=== PATIENT | female | born 1960 | race Caucasian/White ===

== ENCOUNTER 2023-04-09 12:33 | Outpatient (CLI) | payer OTHER, SELFPAY ==
--- NOTE | ~2023-04-09 | CT_ITS ---
EXAMINATION: CT abdomen pelvis wo con DATE: 04/09/2023 12:52 INDICATION: Urinary tract infection TECHNIQUE: Computed tomography (CT) of the abdomen and pelvis was performed without intravenous contr ast. The dose-length product (DLP) was 470.72 mGy-cm. Automated exposure control and iterative recons truction technique were employed. COMPARISON: None FINDINGS: Minimal dependent atelectasis is present in the lung bases. The heart size is normal. The l iver, spleen, pancreas, gallbladder, and adrenal glands are normal. The kidneys are unremarkable. No pathologically enlarged abdominal or pelvic lymph nodes are identified. No free intraperitoneal gas o r evidence of bowel obstruction. There is infiltration of the small bowel mesentery with mildly promi nent, but nonenlarged, mesenteric lymph nodes. Segmentation anomalies are noted in the lumbar spine. There are bilateral L5 pars defects. IMPRESSION: 1. No CT correlate for the patient's symptoms. 2. CT findings consistent with sclerosing mesenteritis. Reviewed, dictated and finalized at location F.
== END 2023-04-09 12:34 | disposition home or self-care (01) ==
PROVIDERS: PCP Internal Medicine; Visit Provider Internal Medicine
DX: N39.0 Urinary tract infection, site not specified (principal)
CPT/HCPCS: 74176

== ENCOUNTER 2023-12-12 01:38 | Day surgery (SDC) | payer OTHER, SELFPAY ==
[2023-12-02 18:16] VITALS: BMI 25.5
--- NOTE | 2023-12-02 18:17 | PC.NURSE ---
Report to the Outpatient Waiting Room, entrance under the green pavilion located off [facility], at time __0615 on date ___[phone]____. Planned Procedure Time: _0815 . Time changes happen often and if your time is changed the preop area will call you the afternoon before. - You and your visitor will be asked to self-screen and do not enter if you have any COVID symptoms. - A mask is optional within the hospital at this time. Patients may have clear liquids (water, carbonated beverages, clear teas, apple juice) until 3 hours prior to surgery with a maximum of 20 ounces. stop at 0515. - No food from midnight until time of surgery - Take the following medications with a SIP of water the morning of surgery: ____none DO NOT STOP ANY OF YOUR OTHER PRESCRIPTION MEDICATIONS PRIOR TO SURGERY ?EXCEPT THE FOLLOWING Medications to discontinue per physician hold supplements x3 days (last dose on 12-08-2023) Please no make-up, nail czech, hairspray, perfume, deodorant, or body powder the day of surgery. No jewelry (including any body piercings) or valuables the day of surgery, leave them at home. Please take a shower or bath the night before, or the morning of, surgery with an antibacterial soap. Wear comfortable, loose fitting clothing. - Jewelry must be removed prior to entering the operating room. Rings and piercings that are not removed may be cut off. - The hospital will not accept responsibility for valuables. - Please leave all valuables, including medications, at home the day of surgery. If you are going home after surgery, a licensed driver's education instructor must drive you home. - NO public transportation without another adult if you receive anesthesia. - We recommend that an adult stay with you for 24 hours following discharge. - We also recommend that you do not drive, make important decision, drink alcoholic beverages, or take any drugs that were not prescribed by your health care provider for at least 24 hours after your discharge time. Follow any additional instructions given to you from your surgeon. If you or anyone in your household have experienced Covid symptoms in the past week, please notify your surgeon or the nurse liaison at the phone number below for possible testing. Telephone instructions given to ___patient/Kenjohny and asked if any additional questions and then verbalized understanding. Patient advised to call surgeon office or pre surgery nurse liaison [phone] if any additional questions.
--- NOTE | 2023-12-07 19:32 | PM.IMHP ---
H&P: HPI History of Present Illness Date/Time: 12/07/23 19:32 Chief Complaint: KRISTI Narrative: h/o KRISTI previous XRT Review of Systems Review of Systems: All systems reviewed & are unremarkable except as noted in HPI and below [facility] Past Medical History Medical History Acute sinusitis Asthma BMI 25.0-25.9,adult BMI 26.0-26.9,adult Encounter for preventive health examination Encounter for routine adult health examination without abnormal findings Encounter to establish care Frequent UTI Hearing loss History of endometrial cancer Hx of colonic polyps Hyperlipidemia 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 Peripheral neuropathy Post-menopausal Pre-diabetes Sleep disturbance SOB (shortness of breath) Vitamin D deficiency Family History Family History Father Family history of Alzheimer's disease, Onset Age: 92 ETOHism Mother Family history of Alzheimer's disease, Onset Age: 92 Social History Social History Smoking status: Never smoker Second hand tobacco smoke exposure: No Smoking end date: 07/14/83 Alcohol intake: current Drinks per week: 3 Alcohol use details: Social ETOH Substance use: never Substance use type: does not use Lack of Transportation: No Lack of Food: Never True Current Housing: I Have Housing Concerned About Future Housing: No Difficulty Paying Gas/Electric Bills: No Difficulty Paying for Meds: No Currently Unemployed: No Education: High School Diploma/GED Difficulty w/ Childcare or Family Care: No Living arrangements: with family Occupation/Education: occupation Gender identity (if verbalized by the patient): Female Meds Home Medications and Allergies Home Medications Medication Instructions Recorded Confirmed Type vitamin B complex 1 tablet PO DAILY 04/03/22 12/02/23 History rosuvastatin 10 mg tablet 10 mg PO DAILY #90 tabs 06/12/23 12/02/23 Rx cholecalciferol (vitamin D3) 100 1,000 unit PO DAILY 12/02/23 12/02/23 History mcg (4,000 unit) capsule fluticasone furoate 200 See Rx Instructions .Route .COMPLEX 12/02/23 12/02/23 History mcg-vilanterol 25 mcg/dose inhalation powder (Breo Ellipta) Allergies Allergy/AdvReac Type Severity Reaction Status Date / Time No Known Drug Allergies Allergy Unknown Unknown Verified 12/02/23 18:29 Exam Narrative: vaginal mucosa healthy urethral hypermobility Assessment and Plan Assessment and plan (1) KRISTI (stress urinary incontinence, female): Code(s): N39.3 - Stress incontinence (female) (male) Status: Acute Assessment and Plan: urethral sling
--- NOTE | 2023-12-11 12:03 | WPDANESEPPF ---
Anes - Initial Pre Proc Eval Procedure: Operation Date: 12/12/23 09:30 Proposed Procedures p Urethral Sling - Andrew Valentine MD Date/Time: 12/11/23 12:03 Surgeon: Andrew Valentine MD Pre Op Diagnosis: stress incontinence Patient Data Age: 62 Gender: F Height: 1.73 m Weight: 76.2 kg Allergies Allergy/AdvReac Type Severity Reaction Status Date / Time No Known Drug Allergies Allergy Unknown Unknown Verified 12/02/23 18:29 Home Medications Medication Instructions Recorded Confirmed Type vitamin B complex 1 tablet PO DAILY 04/03/22 12/02/23 History rosuvastatin 10 mg tablet 10 mg PO DAILY #90 tabs 06/12/23 12/02/23 Rx cholecalciferol (vitamin D3) 100 1,000 unit PO DAILY 12/02/23 12/02/23 History mcg (4,000 unit) capsule fluticasone furoate 200 See Rx Instructions .Route .COMPLEX 12/02/23 12/02/23 History mcg-vilanterol 25 mcg/dose inhalation powder (Breo Ellipta) Patient hx anesthesia problems: none Family hx anesthesia problems: none Results Review: All pre-operative results and documents have been reviewed as part of the pre-operative evaluation. [facility] Past Medical History Medical History (Updated 12/11/23 @ 12:03 by Javy Pope DO) Acute sinusitis Asthma BMI 25.0-25.9,adult BMI 26.0-26.9,adult Encounter for preventive health examination Encounter for routine adult health examination without abnormal findings Encounter to establish care Endometrial cancer Frequent UTI Hearing loss History of endometrial cancer Hx of colonic polyps Hyperlipidemia On correction drug therapy Peripheral neuropathy Post-menopausal Pre-diabetes Sleep disturbance SOB (shortness of breath) Vitamin D deficiency Surgical History Surgical History (Updated 12/11/23 @ 12:03 by Javy Pope DO) History of hysterectomy Family History Family History Father Family history of Alzheimer's disease, Onset Age: 92 ETOHism Mother Family history of Alzheimer's disease, Onset Age: 92 Social History Social History Smoking status: Never smoker Second hand tobacco smoke exposure: No Smoking end date: 07/14/83 Alcohol intake: current Drinks per week: 3 Alcohol use details: Social ETOH Substance use: never Substance use type: does not use Lack of Transportation: No Lack of Food: Never True Current Housing: I Have Housing Concerned About Future Housing: No Difficulty Paying Gas/Electric Bills: No Difficulty Paying for Meds: No Currently Unemployed: No Education: High School Diploma/GED Difficulty w/ Childcare or Family Care: No Living arrangements: with family Occupation/Education: occupation Gender identity (if verbalized by the patient): Female Anes - Eval Final PreProcedure Day of Procedure 12/11/23 12:03 Patient weight: overweight Heart: regular rate and rhythm Lungs: clear to auscultation Airway: Mallampati scale class II Neurological: alert and oriented Last oral intake: >/= 8 hours ASA classification: II Emergent: no Anesthetic plan: proceed Anesthesia type and monitoring: general GIVS and standard monitoring Results Review: All pre-operative results and documents have been reviewed as part of the pre-operative evaluation. Informed Consent: The patient's anesthetic plan and its attendant risks and benefits were discussed with the patient/family/POA. Questions were solicited and answers provided to the satisfaction of the patient/family/POA.
--- NOTE | 2023-12-12 04:34 | WPDHPUPDATE1 ---
History and Physical Update Update Date/Time: 12/12/23 04:34 History and Physical has been reviewed, including an updated exam of the patient. There are NO changes in the patient's condition. Risks, benefits, and alternatives have been discussed and questions answered. Patient agrees to proceed with procedure.
[2023-12-12 08:23] VITALS: BP 116/77; PULSE 84; TEMP 36.3; O2SAT 100
[2023-12-12] MEDS: LACTATED RINGERS 1,000 ML 30 ML IV CONT (08:45)
[2023-12-12] MEDS: ceFAZolin 2 GM/D5W 50 ML 2 GM/50 ML BAG IVPB (09:08)
[2023-12-12] MEDS: BUPIVACAINE/EPINEPHRINE 0.5% 10 ML VIAL INFILTRATE (09:18)
[2023-12-12 09:35] VITALS: BP 97/56; PULSE 76; RESP 12; O2SAT 100
--- NOTE | 2023-12-12 09:41 | W.PM.PROC2 ---
Procedure Note - Detailed Date of Procedure 12/12/23 Pre-op Diagnosis stress incontinence Post-op Diagnosis Same Procedure Performed mid urethral sling cystoscopy Removal of vaginal foreign body Surgeon Andrew Valentine MD Anesthesia MAC and Local Indications This is a female with confirm stress urinary incontinence. She desires surgical correction. She understands the risks of bleeding, infection, injury to the urinary tract, vaginal mesh extrusion, urinary tract mesh erosion, obstructive voiding requiring a secondary procedure, hip and leg pain, dyspareunia, inability to improve overactive bladder symptoms. She agrees to proceed. History of pelvic radiation for endometrial cancer. We did discuss the increased risk of failure as well as mesh exposure other complications. She agreed to proceed Findings Uncomplicated urethral sling. Small screws with Plastic pledget at the apex of the vagina. There was 2 of these that were removed Description of Procedure She was correctly identified. Informed consent obtained. She was brought the operating room. She was given appropriate anesthesia. She was given appropriate perioperative antibiotics. A time-out performed. On vaginal examination she had 2 small screws with a plastic pledget the apex of her vagina. They were exposed through the vaginal mucosa. They appeared to barely attached to the underlying mucosa. I was able to use a forceps and easily removed these 2 foreign bodies. I marked out the site of the inner thigh incisions. I anesthetized the skin and made those incisions. I anesthetized the anterior vaginal wall over the mid urethra. I made a 1 cm incision. I dissected out laterally taking great care not to injure the refilled vaginal wall. She had appropriate vaginal tissues for the sling. She had a foreshortened vagina due to previous radical hysterectomy and radiation therapy. I passed the helical trocars. First on the left. Then on the right. I did this from the thigh incision towards the vaginal incision. The sling was connected to the trocars and brought out through the thigh incision. I tensioned the sling appropriately. I cut and the plastic sheaths. I then closed the incision with 2 0 Vicryl. On cystoscopy there is no tumors or surgical artifact. There was no surgical artifact in the urethra. I cut the excess sling material. Close incisions with glue. She was awakened and transferred to the PACU in stable condition. Implants Urethral sling Estimated Blood Loss 10 Drains No Packing No Pathology Yes (Vaginal foreign body) Complications No immediate complications Condition Stable Disposition PACU
[2023-12-12 10:00] VITALS: BP 105/61; PULSE 79
--- NOTE | 2023-12-12 10:10 | SUR.PHASEII ---
Patient urinated prior to d/c
== END 2023-12-12 10:10 | disposition home or self-care (01) ==
PROVIDERS: PCP Internal Medicine; Visit Provider Urology
PROC: (CPT 57288; principal; 2023-12-12 09:30)
DX: N39.3 Stress incontinence (female) (male) (principal); E78.5 Hyperlipidemia, unspecified; J45.909 Unspecified asthma, uncomplicated; E55.9 Vitamin D deficiency, unspecified; Z79.51 Long term (current) use of inhaled steroids; Z87.891 Personal history of nicotine dependence
CPT/HCPCS: 57288; 88300; C1771; J0690; J1100; J2250; J2405; J2704; J3010; J7030; J7120